=== PATIENT | male | born 1980 | race Caucasian/White ===

== ENCOUNTER 2018-08-07 17:08 | Emergency (ER) | payer MEDICAID ==
[~2018-08-07] VITALS: Ht 177.8 cm; Wt 100.0 kg
[2018-08-08 14:27] VITALS: BP 138/86
== END 2018-08-07 18:47 | disposition home or self-care (01) ==
LOC: EMS 17:09
DX: F10.10 Alcohol abuse, uncomplicated (principal); F19.90 Other psychoactive substance use, unspecified, uncomplicated; Y90.9 Presence of alcohol in blood, level not specified